=== PATIENT | male | born 1960 | race Caucasian/White ===

== ENCOUNTER 2016-04-26 20:33 | Emergency (ER) | payer MEDICAID ==
--- NOTE | 2016-04-26 20:56 | EDPHY ---
H & P Stated Complaint: left wrist pain Time Seen by Provider: 04/26/16 20:56 HPI/ROS: CHIEF COMPLAINT: Left wrist pain HISTORY OF PRESENT ILLNESS: The patient presents to the ED with complaints of left wrist pain and and swelling following a slip and fall on ice. The patient did not strike his head or lose consciousness. He has no complaints of headache , neck pain, back pain, elbow or shoulder pain. The patient denies numbness or weakness. The patient denies additional traumatic complaints. The patient has moderate pain with movement. REVIEW OF SYSTEMS: A comprehensive 10 point review of systems is otherwise negative aside from elements mentioned in the history of present illness. Source: Patient Exam Limitations: No limitations - Personal History Current Tetanus/Diphtheria Vaccine: No Current Tetanus Diphtheria and Acellular Pertussis (TDAP): No - Medical/Surgical History Hx Asthma: No Hx Chronic Respiratory Disease: No Hx Diabetes: No Hx Cardiac Disease: No Hx Renal Disease: No Hx Cirrhosis: No Hx Alcoholism: Yes Hx HIV/AIDS: No Other PMH: GERD - Social History Smoking Status: Current every day smoker - Physical Exam Exam: General Appearance: Alert, no distress Head: Atraumatic Eyes: Pupils equal, round, reactive ENT, Mouth: No hemotympanum, no oral trauma Neck: Nontender, trachea midline Respiratory: No chest wall tender, subcutaneous air, lungs clear bilaterally Cardiovascular: Regular rate and rhythm Abdomen: Abdomen is soft and nontender, pelvis stable Skin: No lacerations, No abrasion Back: No midline T/L/S pain Extremities: Soft tissue swelling and tenderness noted to the left distal radius Neurological: A&Ox3, normal motor function, normal sensory exam Constitutional: Initial Vital Signs Heart Rate 104 H 04/26/16 20:41 Respiratory Rate 18 04/26/16 20:41 Blood Pressure 130/72 H 04/26/16 20:41 O2 Sat (%) 92 04/26/16 20:41 O2 Delivery Mode Room Air O2 (L/minute) 36.9 Allergies/Adverse Reactions: morphine Allergy (Verified 04/26/16 21:22) penicillin G Allergy (Verified 04/26/16 21:22) Home Medications: Medication Instructions Recorded Hydrocodone/APAP 5/325 [Oral 1 - 2 each PO Q6 PRN #20 tab 04/26/16 5/325] Prilosec 20 mg 40 mg PO DAILY 04/26/16 Medical Decision Making - Diagnostics Imaging: Left wrist x-ray: Comminuted intra-articular distal radius fracture with minimal angulation. Images reviewed by myself. Procedures: Procedure: Splint placement. A sugar-tong ortho glass splint was applied to the left upper extremity by the tech. After application of the splint I returned and re-examined the patient. The splint was adequately immobilizing the joint and distal to the splint the patient's circulation and sensation was intact. ED Course/Re-evaluation: The patient presents to the ED with a minimally angulated, intra-articular distal radius fracture. The patient was placed in a sugar-tong splint. He is advised to follow up with our on-call orthopedic surgeon for further care. Patient is advised to ice the area. He should contact the orthopedic surgeon's office tomorrow to schedule a follow-up visit. The patient does report an allergy to morphine however states that he has taken Percocet and Oral in the past without complication. He reports his morphine allergy is pruritus. Differential Diagnosis: Differential diagnosis considered includes fracture, sprain, dislocation Departure - Departure Disposition: Home, Routine, Self-Care Clinical Impression: Fracture of left distal radius Qualifiers: Encounter type: initial encounter Fracture type: closed Fracture morphology: other intra-articular Qualifier Code: (S52.572A) Other intraarticular fracture of lower end of left radius, initial encounter for closed fracture Condition: Good Instructions: Wrist Fracture in Adults (ED) Additional Instructions: 1. Please wear splint until seen by Orthopedic surgery. 2. Please contact the orthopedic surgeon you have been referred to tomorrow to schedule a follow-up visit the next 2-3 days to discuss further care needed for management of your fracture. 3. Take Ibuprofen or Motrin 600 mg by mouth three times a day. 4. Oral as needed for severe pain Referrals: Cruzito Marcelo MD [Medical Doctor] - As per Instructions Prescriptions: Hydrocodone/APAP 5/325 [Oral 5/325] 1 - 2 each PO Q6 PRN #20 tab PRN Reason: for pain
--- NOTE | 2016-04-26 21:18 | DX ---
Left Wrist 3 views. Clinical Indications: Pain following trauma. Findings: There is a mildly comminuted, impacted and minimally displaced intra-articular fracture of the distal left radius. No other acute fracture is seen. There is mild deformity of the distal end of the fifth metacarpal which could be a healed fracture related to remote trauma. Impression: Impacted, displaced intra-articular fracture of the distal left radius.
[2016-04-26 21:55] VITALS: BP 131/67; PULSE 76; RESP 16; O2SAT 95
== END 2016-04-26 21:53 | disposition home or self-care (01) ==
LOC: EDUNIT#
DX: S52.502A Unspecified fracture of the lower end of left radius, initial encounter for closed fracture (principal); F17.200 Nicotine dependence, unspecified, uncomplicated; W00.0XXA Fall on same level due to ice and snow, initial encounter